=== PATIENT | female | born 1960 | race Caucasian/White ===

== ENCOUNTER 2019-05-18 12:34 | Outpatient (CLI) | payer OTHER ==
[~2019-05-18 12:34] MED LIST: LIDOCAINE-MPF 1%, 5ML ONE
[2019-05-18] MEDS ORDERED: GADOTERATE 5 MMOL/10 ML VIAL ONE (13:00)
[2019-05-18] MEDS ORDERED: TRIAMCINOLONE ACETONIDE 40 MG/ML, 1ML ONE (13:00)
[2019-05-18] MEDS ORDERED: BUPIVACAINE/PF 0.5% ONE (13:00)
[2019-05-18] MEDS ORDERED: OMNIPAQUE 300 MG/ML, 10ML VIAL ONE (13:00)
[2019-05-18] MEDS ORDERED: LIDOCAINE-MPF 1%, 5ML ONE (13:51)
[2019-05-18] MEDS ORDERED: BETAMETHASONE 6 MG/ML, 5ML IM ONE (14:00)
== END 2019-05-18 23:59 | disposition home or self-care (01) ==
LOC: RAD 12:34
PROVIDERS: ATTEND Radiology Diagnostic Radiology
DX: M25.852 Other specified joint disorders, left hip (principal)
CPT/HCPCS: 27093; 73525; 73722; A9575; Q9967; J3301

== ENCOUNTER → 2020-07-27 | Outpatient (CLI) | payer OTHER | END | disposition home or self-care (01) | LOC: CFH 09:42 | PROVIDERS: ATTEND Internal Medicine | DX: Z12.31 Encounter for screening mammogram for malignant neoplasm of breast (principal) | CPT/HCPCS: 77063; 77067 ==

== ENCOUNTER → 2020-07-29 | Outpatient (CLI) | payer OTHER | END | disposition home or self-care (01) | LOC: CFH 11:02 | PROVIDERS: ATTEND Internal Medicine | DX: M85.80 Other specified disorders of bone density and structure, unspecified site (principal); M81.0 Age-related osteoporosis without current pathological fracture | CPT/HCPCS: 77080 ==